=== PATIENT | male | born 1965 | race Caucasian/White ===

== ENCOUNTER 2019-12-05 19:20 | Inpatient (IN) | payer BC ==
[2019-12-05] MEDS ORDERED: KETOROLAC 30 MG/ML 1 ML VIAL IVP STA (19:30)
--- NOTE | 2019-12-05 19:32 | ED ---
Recheck HPI <Marva Freeman - Last Filed: 12/05/19 23:28> <LeandroFarrah Vidhi - Last Filed: 12/07/19 07:23> - General Chief Complaint: Abdominal Pain Stated Complaint: Kidney Stone Time Seen by Provider: 12/05/19 19:23 - History of Present Illness Initial Comments: 54yo male who denies significant PMH presents today for chief complaint of left- sided flank pain. Patient states that a week ago Wednesday he was diagnosed with a left-sided obstructing kidney stone that would need a possible stent placement, patient states that he was discharged from the [facility] with urology follow-up. Patient states she has scheduled urology follow-up in 2 days however can no longer tolerate the pain he states he presented yesterday to the [facility] for pain control secondary to the stone. Patient denies any fever or chills general malaise patient admits to intolerable pain. Patient states he is still able to urinate. Denies additional areas of pain or complaints. Patient states he does not wish to follow-up in [place] he wishes to be seen wherever he will be seen and treated the fastest. (Marva Freeman) - Related Data Home Medications Medication Instructions Recorded Confirmed Albuterol Sulfate [Ventolin HFA] 1 - 2 puff INHALATION RT-Q6H PRN 12/05/19 12/05/19 Fluticasone Propion/Salmeterol 1 puff INHALATION RT-DAILY 12/05/19 12/05/19 [Wixela 250-50 Inhub] Ondansetron Odt [Zofran Odt] 4 mg PO Q8H PRN 12/05/19 12/05/19 amLODIPine BESYLATE/BENAZEPRIL 1 cap PO DAILY 12/05/19 12/05/19 [amLODIPine BESYLATE/BENAZEPRIL 5-10 MG] oxyCODONE-APAP 5-325MG [Percocet 1 tab PO Q6HR PRN 12/05/19 12/05/19 5-325 mg] Allergies Allergy/AdvReac Type Severity Reaction Status Date / Time Sulfa (Sulfonamide AdvReac Rash/Hives Verified 12/05/19 21:48 Antibiotics) Review of Systems ROS Other: All systems not noted in ROS Statement are negative. <Marva Freeman - Last Filed: 12/05/19 23:28> ROS Other: All systems not noted in ROS Statement are negative. <Urbano Reevesah Vidhi - Last Filed: 12/07/19 07:23> ROS Statement: Those systems with pertinent positive or pertinent negative responses have been documented in the HPI. General Exam <Marva Freeman - Last Filed: 12/05/19 23:28> - General Exam Comments Initial Comments: General: The patient is awake and alert, in no distress Eye: +3 mm pupils are equal, round and reactive to light, extra-ocular mov ements are intact. No nystagmus. There is normal conjunctiva bilaterally. No signs of icterus. Cardiovascular: There is a regular rate and rhythm. No murmur, rub or gallop is appreciated. Respiratory: Lungs are clear to auscultation, respirations are non-labored, breath sounds are equal. No wheezes, stridor, rales, or rhonchi. Gastrointestinal: Soft, non-distended, non-tender abdomen without masses or organomegaly noted. There is no rebound or guarding present. Musculoskeletal: Normal ROM, no tenderness. Strength 5/5. Sensation intact. Radial pulses equal bilaterally 2+. Neurological: A&O x 3. CN II-XII intact grossly, There are no obvious motor or sensory deficits. Coordination appears grossly intact. Speech is normal. Skin: Skin is warm and dry and no rashes or lesions are noted. Psychiatric: Cooperative, appropriate mood & affect, normal judgment. (Marva Freeman) Course Vital Signs 12/05/19 12/05/19 19:32 20:28 Temperature 98.6 F Pulse Rate 74 71 Respiratory 19 17 Rate Blood Pressure 155/110 137/87 O2 Sat by Pulse 97 95 Oximetry Medical Decision Making - Lab Data Result diagrams: 12/05/19 20:00 12/05/19 20:00 <Marva Freeman Avery - Last Filed: 12/05/19 23:28> - Lab Data Result diagrams: 12/05/19 20:00 12/05/19 20:00 <SurinderveronicaFarrah Vidhi - Last Filed: 12/07/19 07:23> - Medical Decision Making 54yo male presenting today for cc of left flank pain, ongoing x 1 week. Patient states pain has been uncontrolled with percocet outpatient. Patient states that he wishes to see urology in [place] who whoever can see the patient fastest. Patient does not have fever. Mild leukocytosis. Patient has no bacteria in urine. Patient chart reviewed from visit yesterday in ER. I saw CT report revealing 7mm UPJ stone with perinephretic edema some hydronephrosis concerning for obstructing stone. UA no consistent with infection and patient leukocytosis has not worsened from [facility] to our facility. Dr. Monzon accepted admission for pain control and possible intervention. Gabrielle Reeves spoke with Dr. Monzon and is agreeable to admission Green field filter noted on KUB is from when patient was on ECHMO after a fungal pneumonia (Marva Freeman) I was available for consultation in the emergency department. The history and physical exam were done by the midlevel provider. I was consulted for this patients care. I reviewed the case with the midlevel provider and based on the ir presentation of the patient, I agree with the assessment, medical decision making and plan of care as documented. I discussed the case with Dr. Monzon who accepted admission for the patient. Chart was dictated using [employer] dictation software. Attempts were made to correct any dictation errors however some typographical errors may persist. (Farrah Reeves) - Lab Data Lab Results 12/05/19 12/05/19 12/05/19 Range/Units 20:00 20:00 20:00 WBC 12.1 H (3.8-10.6) k/uL RBC 4.92 (4.30-5.90) m/uL Hgb 14.8 (13.0-17.5) gm/dL Hct 45.0 (39.0-53.0) % MCV 91.4 (80.0-100.0) fL MCH 30.0 (25.0-35.0) pg MCHC 32.9 (31.0-37.0) g/dL RDW 12.1 (11.5-15.5) % Plt Count 244 (150-450) k/uL Neutrophils % 84 % Lymphocytes % 8 % Monocytes % 6 % Eosinophils % 2 % Basophils % 1 % Neutrophils # 10.1 H (1.3-7.7) k/uL Lymphocytes # 0.9 L (1.0-4.8) k/uL Monocytes # 0.7 (0-1.0) k/uL Eosinophils # 0.2 (0-0.7) k/uL Basophils # 0.1 (0-0.2) k/uL Sodium 137 (137-145) mmol/L Potassium 4.1 (3.5-5.1) mmol/L Chloride 106 (98-107) mmol/L Carbon Dioxide 23 (22-30) mmol/L Anion Gap 8 mmol/L BUN 15 (9-20) mg/dL Creatinine 1.25 (0.66-1.25) mg/dL Est GFR (CKD-EPI)AfAm 77 (>60 ml/min/1.73 sqM) Est GFR (CKD-EPI)NonAf 66 (>60 ml/min/1.73 sqM) Glucose 103 H (74-99) mg/dL Plasma Lactic Acid Suhail 1.2 (0.7-2.0) mmol/L Calcium 8.4 (8.4-10.2) mg/dL Total Bilirubin 0.6 (0.2-1.3) mg/dL AST 21 (17-59) U/L ALT 17 (4-49) U/L Alkaline Phosphatase 60 (38-126) U/L Total Protein 7.2 (6.3-8.2) g/dL Albumin 3.9 (3.5-5.0) g/dL Urine Color Urine Appearance (Clear) Urine pH (5.0-8.0) Ur Specific [place] (1.001-1.035) Urine Protein (Negative) Urine Glucose (UA) (Negative) Urine Ketones (Negative) Urine Blood (Negative) Urine Nitrite (Negative) Urine Bilirubin (Negative) Urine Urobilinogen (<2.0) mg/dL Ur Leukocyte Esterase (Negative) 12/05/19 Range/Units 20:00 WBC (3.8-10.6) k/uL RBC (4.30-5.90) m/uL Hgb (13.0-17.5) gm/dL Hct (39.0-53.0) % MCV (80.0-100.0) fL MCH (25.0-35.0) pg MCHC (31.0-37.0) g/dL RDW (11.5-15.5) % Plt Count (150-450) k/uL Neutrophils % % Lymphocytes % % Monocytes % % Eosinophils % % Basophils % % Neutrophils # (1.3-7.7) k/uL Lymphocytes # (1.0-4.8) k/uL Monocytes # (0-1.0) k/uL Eosinophils # (0-0.7) k/uL Basophils # (0-0.2) k/uL Sodium (137-145) mmol/L Potassium (3.5-5.1) mmol/L Chloride (98-107) mmol/L Carbon Dioxide (22-30) mmol/L Anion Gap mmol/L BUN (9-20) mg/dL Creatinine (0.66-1.25) mg/dL Est GFR (CKD-EPI)AfAm (>60 ml/min/1.73 sqM) Est GFR (CKD-EPI)NonAf (>60 ml/min/1.73 sqM) Glucose (74-99) mg/dL Plasma Lactic Acid Suhail (0.7-2.0) mmol/L Calcium (8.4-10.2) mg/dL Total Bilirubin (0.2-1.3) mg/dL AST (17-59) U/L ALT (4-49) U/L Alkaline Phosphatase (38-126) U/L Total Protein (6.3-8.2) g/dL Albumin (3.5-5.0) g/dL Urine Color Yellow Urine Appearance Clear (Clear) Urine pH 6.5 (5.0-8.0) Ur Specific [place] 1.016 (1.001-1.035) Urine Protein Negative (Negative) Urine Glucose (UA) Negative (Negative) Urine Ketones 2+ H (Negative) Urine Blood Negative (Negative) Urine Nitrite Negative (Negative) Urine Bilirubin Negative (Negative) Urine Urobilinogen <2.0 (<2.0) mg/dL Ur Leukocyte Esterase Negative (Negative) Disposition Is patient prescribed a controlled substance at d/c from ED?: No Time of Disposition: 22:03 Decision to Admit Reason: Admit from EC Decision Date: 12/05/19 Decision Time: 22:03 <Marva Freeman - Last Filed: 12/05/19 23:28> <Farrah Reeves - Last Filed: 12/07/19 07:23> Clinical Impression: Intractable pain, Urinary tract obstruction by kidney stone Disposition: ADMITTED IP TO THIS [facility] Condition: Stable
[2019-12-05 20:09] LABS: RBC 4.92 m/uL (4.30-5.90); WBC 12.1 k/uL (3.8-10.6)
[2019-12-05 20:10] LABS: Basophils # (A) 0.1 k/uL (0-0.2); Basophils % (A) 1 %; Eosinophils # (A) 0.2 k/uL (0-0.7); Eosinophils % (A) 2 %; HGB 14.8 gm/dL (13.0-17.5); Lymphocytes # (A) 0.9 k/uL (1.0-4.8); Lymphocytes % (A) 8 %; MCHC 32.9 g/dL (31.0-37.0); MCV 91.4 fL (80.0-100.0); Mean Platelet Volume 7.6; Monocytes # (A) 0.7 k/uL (0-1.0); Monocytes % (A) 6 %; Neutrophils # (A) 10.1 k/uL (1.3-7.7); Neutrophils % (A) 84 %; Platelet Count 244 k/uL (150-450); RDW 12.1 % (11.5-15.5)
[2019-12-05 20:21] LABS: Albumin 3.9 g/dL (3.5-5.0); Calcium 8.4 mg/dL (8.4-10.2); Potassium 4.1 mmol/L (3.5-5.1); Total Bilirubin 0.6 mg/dL (0.2-1.3); Total Protein 7.2 g/dL (6.3-8.2)
[2019-12-05 20:26] LABS: Appearance,Urine Clear (Clear); Bilirubin,Urine Negative (Negative); Blood,Urine Negative (Negative); Color,Urine Yellow; Glucose,Urine (UA) Negative (Negative); Ketones,Urine 2+ (Negative); Leukocyte Esterase,Urine Negative (Negative); Nitrite,Urine Negative (Negative); PH, Urine 6.5 (5.0-8.0); Protein,Urine Negative (Negative); Specific Gravity,Urine 1.016 (1.001-1.035); Urobilinogen,Urine <2.0 mg/dL (<2.0)
--- NOTE | 2019-12-05 21:32 | XR ---
EXAMINATION TYPE: XR KUB DATE OF EXAM: 12/05/2019 COMPARISON: None INDICATION: Left renal pain TECHNIQUE: Single view abdomen frontal upright view FINDINGS: There is a nonspecific bowel gas pattern present. Filter is within the right paraspinal region betwee n L2 and L3. No suspicious calcifications are evident. Couple of nonspecific calcifications are betwe en the L4 and L5 transverse processes. Psoas margins are normal. No organomegaly is present. IMPRESSION: 1. Nonspecific abdomen. 2. Nonspecific calcification in the right hemipelvis. 3. No suspicious left renal or ureteral stone calcifications.
[2019-12-05] MEDS ORDERED: MORPHINE SULFATE 4 MG/ML SYRINGE IV PRN (21:59)
[2019-12-05] MEDS ORDERED: KETOROLAC 30 MG/ML 1 ML VIAL IVP PRN (21:59)
[2019-12-05] MEDS ORDERED: NALOXONE 0.4 MG/ML 1 ML VIAL IV PRN (21:59)
[2019-12-05] MEDS ORDERED: ONDANSETRON 4 MG/2 ML VIAL IVP PRN (22:20)
[2019-12-06] MEDS: SODIUM CHLORIDE 0.9% 1,000 ML IV SCH ×3 (00:31→18:12)
--- NOTE | 2019-12-06 08:46 | P.GSHP ---
History of Present Illness H&P Date: 12/06/19 Chief Complaint: Left renal colic The patient is a 54 yo WM seen in the ER at [facility] on November 29, 2019 for left renal colic. A CT scan showed moderate left hydronephrosis due to a 7 mm left UPJ calculus. He was seen by Dr. Huey Avilez, who scheduled him to undergo placement of a left ureteral stent on 12/07/2019 with the intent of him subsequently undergoing ESWL. However, he was admitted to [facility] yesterday with intractable pain. - Constitutional Constitutional: Denies chills, Denies fever - Gastrointestinal Gastrointestinal: Reports nausea, Denies vomiting - Genitourinary (Male) Genitourinary: Reports flank pain, Reports kidney stones, Reports urinary hesitancy, Denies dysuria, Denies hematuria Past Medical History Past Medical History: Asthma, Pneumonia History of Any Multi-Drug Resistant Organisms: None Reported Past Surgical History: Appendectomy, Cholecystectomy Additional Past Surgical History / Comment(s): papito filter Past Psychological History: No Psychological Hx Reported Smoking Status: Never smoker Past Alcohol Use History: Occasional Past Drug Use History: None Reported - Past Family History Mother Family Medical History: No Reported History Medications and Allergies Home Medications Medication Instructions Recorded Confirmed Type Albuterol Sulfate [Ventolin HFA] 1 - 2 puff INHALATION RT-Q6H PRN 12/05/19 12/05/19 History Fluticasone Propion/Salmeterol 1 puff INHALATION RT-DAILY 12/05/19 12/05/19 History [Wixela 250-50 Inhub] Ondansetron Odt [Zofran Odt] 4 mg PO Q8H PRN 12/05/19 12/05/19 History amLODIPine BESYLATE/BENAZEPRIL 1 cap PO DAILY 12/05/19 12/05/19 History [amLODIPine BESYLATE/BENAZEPRIL 5-10 MG] oxyCODONE-APAP 5-325MG [Percocet 1 tab PO Q6HR PRN 12/05/19 12/05/19 History 5-325 mg] Allergies Allergy/AdvReac Type Severity Reaction Status Date / Time Sulfa (Sulfonamide AdvReac Rash/Hives Verified 12/05/19 21:48 Antibiotics) Surgical - Exam Vital Signs Temp Pulse Resp BP Pulse Ox 98.6 F 74 19 155/110 97 12/05/19 19:32 12/05/19 19:32 12/05/19 19:32 12/05/19 19:32 12/05/19 19:32 - General well developed, well nourished, no distress - Respiratory normal respiratory effort - Abdomen Abdomen: soft, non tender, no guarding, no rigid, no rebound - Genitourinary normal penis with no external lesions, testicles non-tender - Rectum Rectum: normal sphincter tone, no masses, other (prostate moderately enlarged but smooth) - Psychiatric oriented to time, oriented to person, oriented to place, speech is normal, memory intact Results - Labs 12/05/19 20:00 12/05/19 20:00 Abnormal Lab Results - Last 24 Hours (Table) 12/05/19 12/05/19 12/05/19 Range/Units 20:00 20:00 20:00 WBC 12.1 H (3.8-10.6) k/uL Neutrophils # 10.1 H (1.3-7.7) k/uL Lymphocytes # 0.9 L (1.0-4.8) k/uL Glucose 103 H (74-99) mg/dL Urine Ketones 2+ H (Negative) Diabetes panel 12/05/19 Range/Units 20:00 Sodium 137 (137-145) mmol/L Potassium 4.1 (3.5-5.1) mmol/L Chloride 106 (98-107) mmol/L Carbon Dioxide 23 (22-30) mmol/L BUN 15 (9-20) mg/dL Creatinine 1.25 (0.66-1.25) mg/dL Glucose 103 H (74-99) mg/dL Calcium 8.4 (8.4-10.2) mg/dL AST 21 (17-59) U/L ALT 17 (4-49) U/L Alkaline Phosphatase 60 (38-126) U/L Total Protein 7.2 (6.3-8.2) g/dL Albumin 3.9 (3.5-5.0) g/dL Calcium panel 12/05/19 Range/Units 20:00 Calcium 8.4 (8.4-10.2) mg/dL Albumin 3.9 (3.5-5.0) g/dL Pituitary panel 12/05/19 Range/Units 20:00 Sodium 137 (137-145) mmol/L Potassium 4.1 (3.5-5.1) mmol/L Chloride 106 (98-107) mmol/L Carbon Dioxide 23 (22-30) mmol/L BUN 15 (9-20) mg/dL Creatinine 1.25 (0.66-1.25) mg/dL Glucose 103 H (74-99) mg/dL Calcium 8.4 (8.4-10.2) mg/dL Adrenal panel 12/05/19 Range/Units 20:00 Sodium 137 (137-145) mmol/L Potassium 4.1 (3.5-5.1) mmol/L Chloride 106 (98-107) mmol/L Carbon Dioxide 23 (22-30) mmol/L BUN 15 (9-20) mg/dL Creatinine 1.25 (0.66-1.25) mg/dL Glucose 103 H (74-99) mg/dL Calcium 8.4 (8.4-10.2) mg/dL Total Bilirubin 0.6 (0.2-1.3) mg/dL AST 21 (17-59) U/L ALT 17 (4-49) U/L Alkaline Phosphatase 60 (38-126) U/L Total Protein 7.2 (6.3-8.2) g/dL Albumin 3.9 (3.5-5.0) g/dL - Imaging CT scan - abdomen: report reviewed, image reviewed Assessment and Plan (1) Calculus of ureter Current Visit: Yes Status: Acute Code(s): N20.1 - CALCULUS OF URETER SNOM ED Code(s): 42506668 (2) Hydronephrosis with renal and ureteral calculous obstruction Current Visit: Yes Status: Acute Code(s): N13.2 - HYDRONEPHROSIS WITH RENAL AND URETERAL CALCULOUS OBSTRUCTION SNOMED Code(s): 554111234 Plan: I had a lengthy discussion with the patient and his . I have offered to place a left ureteral stent during this hospitalization. However, the calculus is not visualized on a plain radiograph, and I have suggested he may be better served by undergoing ureteroscopy with laser lithotripsy and stent placement. The rationale for this was discussed in detail. The procedure was reviewed, and potential risks were discussed which include anesthesia, bleeding, infection, and ureteral injury. The possibility that the calculus cannot be adequately fragmented was discussed. The patient wishes to proceed in this manner. Time with Patient: Greater than 30
[2019-12-06] MEDS ORDERED: ONDANSETRON 4 MG/2 ML VIAL IVP ONE (18:43)
[2019-12-06] MEDS ORDERED: LIDOCAINE 1% (10MG/ML) FOR IV START INTRADERMA PRN (18:43)
[2019-12-06] MEDS ORDERED: HYDROmorphone 0.5 MG/0.5 ML SYRINGE IVP PRN (18:43)
[2019-12-06] MEDS ORDERED: LACTATED RINGERS 1,000 ML IV SCH (18:43)
[2019-12-06] MEDS ORDERED: DEXAMETHASONE SOD PHOSPHATE 10 MG/ML 1 ML VIAL IV ONE (18:43)
[2019-12-07] MEDS: SODIUM CHLORIDE 0.9% 1,000 ML IV SCH (05:20)
[2019-12-07] MEDS ORDERED: LACTATED RINGERS 1,000 ML IV ONE (13:04)
[2019-12-07] MEDS ORDERED: fentaNYL (PF) 50 MCG/ML 2 ML AMP ONE (14:30)
[2019-12-07] MEDS ORDERED: GLYCOPYRROLATE 0.2 MG/ML 2 ML VIAL ONE (14:30)
[2019-12-07] MEDS ORDERED: ROCURONIUM BROMIDE 10 MG/ML 5 ML VIAL IV ONE (14:30)
[2019-12-07] MEDS ORDERED: NEOSTIGMINE 1 MG/ML 10 ML VIAL ONE (14:30)
[2019-12-07] MEDS ORDERED: MIDAZOLAM 2 MG/2 ML VIAL ONE (14:30)
[2019-12-07] MEDS ORDERED: LIDOCAINE 1% INJ 10MG/ML (20 ML MDV) ONE (14:30)
[2019-12-07] MEDS ORDERED: PROPOFOL 10 MG/ML 20 ML VIAL IV ONE (14:30)
[2019-12-07] MEDS ORDERED: SUCCINYLCHOLINE CHLORIDE 100 MG/5 ML SYR IV ONE (14:30)
[2019-12-07] MEDS ORDERED: KETOROLAC 30 MG/ML 1 ML VIAL ONE (14:30)
[2019-12-07] MEDS ORDERED: PHENYLEPHRINE-0.9% NACL SYG 1 MG/10 ML SYRINGE ONE (14:30)
[2019-12-07] MEDS ORDERED: IOPAMIDOL-370 50ML BTL MISCELLANE ONE ×2 (14:54)
[2019-12-07] MEDS ORDERED: oxyCODONE-APAP 5-325MG 1 EACH TAB PO PRN (16:02)
[2019-12-07] MEDS ORDERED: ONDANSETRON ODT 4 MG TAB PO PRN (16:02)
--- NOTE | 2019-12-07 16:02 | P.OP ---
Date of Procedure: 12/07/19 Preoperative Diagnosis: Left ureteral calculus Postoperative Diagnosis: Same Procedure(s) Performed: Cystoscopy, left ureteroscopy with Holmium laser lithotripsy, left ureteral stent insertion Anesthesia: PASCUALA Surgeon: Cameron Monzon Estimated Blood Loss (ml): 10 IV fluids (ml): 650 Pathology: none sent Condition: stable Disposition: PACU Indications for Procedure: The patient is a 54 yo WM seen in the ER at [facility] on November 29, 2019 for left renal colic. A CT scan showed moderate left hydronephrosis due to a 7 mm left UPJ calculus. He was seen by Dr. Huey Avilez, who scheduled him to undergo placement of a left ureteral stent on 12/07/2019 with the intent of him subsequently undergoing ESWL. However, he was admitted to [facility] with intractable pain and now comes for ureteroscopic removal of the calculus. Operative Findings: Left proximal ureteral calculus, fragmented completely. Description of Procedure: The patient was taken to the operating room and placed in the dorsolithotomy position, with legs supported in Derian stirrups. The external genitalia was prepped and draped sterilely. The 30 lens was used to introduce the 19-Nepali Stortz cystoscopic sheath through the urethra and into the bladder under direct vision. The prostatic urethra showed evidence of a high median bar but without is otherwise unremarkable. There was no significant lateral lobe enlargement The bladder was examined in its entirety. Both ureteral orifices were normal anatomic location and configuration, and clear urine effluxed from both. No tumors or foreign bodies were seen. Using an 8-Nepali cone-tipped catheter, a left retrograde pyelogram was performed. The ureter appeared normal distal to the stone, which was seen within the proximal ureter. A 0.038 inch Glidewire was passed through the cystoscope. The left ureteral orifice was cannulated, and the Glidewire was advanced up to the left renal pelvis. The calculus had become dislodged as a result of the retrograde pyelogram and refluxed back into the kidney. An 11/13- Nepali ureteral access catheter was passed over the wire, up to the proximal ureter. The Olympus mini flexible ureteroscope was passed through the ureteral access catheter sheath and advanced to the proximal ureter under direct vision, up to the left renal pelvis. The calculus was identified. The 200 micron Holmium laser probe was passed through the ureteroscope, and lithotripsy was performed. The calculus refluxed into an upper pole calyx, where lithotripsy was completed. The calculus was very dense, likely composed of calcium oxalate monohydrate, and therefore a fragmenting mode was utilized rather than a dusting mode. There were no residual calculus fragments exceeding the size of the laser fiber tip. The Glidewire was passed through the ureteroscope, which was then removed along with the ureteral access catheter sheath. The Glidewire was backloaded into the cystoscope, which was passed into the bladder. A 4.8- Nepali, 26 cm double-J ureteral stent was placed over the wire. Proper stent positioning was verified fluoroscopically and endoscopically. The bladder was emptied and the cystoscope removed. The patient tolerated the procedure well and was taken to the recovery room in stable condition. [facility] [place] Report: Procedure Acuity: Urgent Stone Size and Location: 7 mm, left proximal ureter Ureteral Dilation: No Ureteral Access Sheath Used: Yes Stone Sent for Analysis: No All Stones/Fragments Were Removed with a Basket: No Complications: No Preoperative Antibiotics Given: Yes Stent Placed: Yes If Stent Placed, Was String Left Attached: Yes If Stent Placed, When is it to be Removed: 1 week Discharge Medications: None
--- NOTE | 2019-12-07 16:40 | FL ---
EXAMINATION TYPE: FL urography retrograde DATE OF EXAM: 12/07/2019 FLUOROSCOPY Fluoroscopy time of 36 seconds was used during cystoscopy with left-sided lithotripsy and stent inser tion. 2 image/s document/s the procedure.
[2019-12-07 17:04] VITALS: RESP 16
[2019-12-07 17:35] VITALS: TEMP 97.7
[2019-12-07 17:58] VITALS: BP 133/86; PULSE 74
--- NOTE | 2019-12-08 05:56 | P.DS ---
Providers Date of admission: 12/07/19 08:41 Expected date of discharge: 12/07/19 Attending physician: Cameron Monzon Primary care physician: Dar Mauricio - Discharge Diagnosis(es) (1) Calculus of ureter Status: Acute (2) Hydronephrosis with renal and ureteral calculous obstruction Status: Acute Hospital Course: The patient was admitted with left renal colic due to a 7 mm left UPJ calculus. He was treated with parenteral analgesics and IV hydration. On 12/07/2019 he underwent ureteroscopy with laser lithotripsy. The calculus was fragmented completely, and a ureteral stent was placed. He was subsequently discharged home. Procedures: Cystoscopy, left ureteroscopy with laser lithotripsy, left ureteral stent insertion on 12/07/2019 Patient Condition at Discharge: Stable Plan - Discharge Summary New Discharge Prescriptions: No Action oxyCODONE-APAP 5-325MG [Percocet 5-325 mg] 1 tab PO Q6HR PRN PRN Reason: Pain Ondansetron Odt [Zofran Odt] 4 mg PO Q8H PRN PRN Reason: Nausea Fluticasone Propion/Salmeterol [Wixela 250-50 Inhub] 1 puff INHALATION RT- DAILY Albuterol Sulfate [Ventolin HFA] 1 - 2 puff INHALATION RT-Q6H PRN PRN Reason: Shortness Of Breath amLODIPine BESYLATE/BENAZEPRIL [amLODIPine BESYLATE/BENAZEPRIL 5-10 MG] 1 cap PO DAILY Discharge Medication List Albuterol Sulfate [Ventolin HFA] 1 - 2 puff INHALATION RT-Q6H PRN 12/05/19 [History] Fluticasone Propion/Salmeterol [Wixela 250-50 Inhub] 1 puff INHALATION RT-DAILY 12/05/19 [History] Ondansetron Odt [Zofran Odt] 4 mg PO Q8H PRN 12/05/19 [History] amLODIPine BESYLATE/BENAZEPRIL [amLODIPine BESYLATE/BENAZEPRIL 5-10 MG] 1 cap PO DAILY 12/05/19 [History] oxyCODONE-APAP 5-325MG [Percocet 5-325 mg] 1 tab PO Q6HR PRN 12/05/19 [History] Follow up Appointment(s)/Referral(s): Cameron Monzon MD [STAFF PHYSICIAN] - 1 Week (Office is closed please call and make follow up appointment.) Dar Mauricio MD [Primary Care Provider] - 1-2 days (Office is closed please call and make follow up appointment.) Patient Instructions/Handouts: *Surgery [facility] - Cystoscopy Discharge Instructions, Ureteral Stent Placement (DC), Lithotripsy (DC) Activity/Diet/Wound Care/Special Instructions: Drink plenty of fluids for 72 hours. Strain urine for 72 hours. Diet as tolerated. Activity as tolerated. Discharge Disposition: HOME SELF-CARE
[2019-12-08] MEDS ORDERED: SYMBICORT 80-4.5 MCG INHALER INHALATION SCH (08:00)
[2019-12-08] MEDS ORDERED: amLODIPine 5 MG TAB PO SCH (09:00)
[2019-12-08] MEDS ORDERED: LISINOPRIL 10 MG TAB PO SCH (09:00)
== END 2019-12-07 18:23 | disposition home or self-care (01) | DRG 661 ==
LOC: EC 19:20 → 5NMEDONC 23:02 → OBSVTOIN 12-07 08:41
PROVIDERS: ADMIT Urology; ATTEND Urology
PROC: 0TC18ZZ Extirpation of Matter from Left Kidney, Via Natural or Artificial Opening Endoscopic (ICD-10-PCS; principal; 2019-12-07 14:00)
PROC: 0T778DZ Dilation of Left Ureter with Intraluminal Device, Via Natural or Artificial Opening Endoscopic (ICD-10-PCS; principal; 2019-12-07 14:00)
DX: N13.2 Hydronephrosis with renal and ureteral calculous obstruction (principal); D72.829 Elevated white blood cell count, unspecified; J45.909 Unspecified asthma, uncomplicated; Z11.59 Encounter for screening for other viral diseases; Z79.899 Other long term (current) drug therapy; Z88.2 Allergy status to sulfonamides; Z87.01 Personal history of pneumonia (recurrent); Z90.49 Acquired absence of other specified parts of digestive tract
CPT/HCPCS: 36415; 74018; 74420; 80053; 81003; 83605; 85025; 87040; 96374; 96375; 99285

== ENCOUNTER → 2020-01-10 | Outpatient (CLI) | payer BC ==
[2020-01-10 08:27] LABS: Appearance,Urine Clear (Clear); Bilirubin,Urine Negative (Negative); Blood,Urine Negative (Negative); Color,Urine Colorless; Glucose,Urine (UA) Negative (Negative); Ketones,Urine Negative (Negative); Leukocyte Esterase,Urine Negative (Negative); Nitrite,Urine Negative (Negative); Protein,Urine Negative (Negative); Specific Gravity,Urine 1.003 (1.001-1.035); Urobilinogen,Urine <2.0 mg/dL (<2.0)
--- NOTE | 2020-01-10 09:14 | US ---
EXAMINATION TYPE: US kidneys/renal and bladder DATE OF EXAM: 01/10/2020 COMPARISON: Abdominal x-ray December 05, 2019 CLINICAL HISTORY: N13.2 Hydronephrosis. History of left renal stones and recent lithotripsy. EXAM MEASUREMENTS: Right Kidney: 11.5 x 5.8 x 4.5 cm Left Kidney: 10.9 x 6.0 x 6.1 cm Post Void Residual Volume: 19.2 mL Right Kidney: No hydronephrosis or masses seen small cortical cysts are imaged with larger cyst seen medial mid pole = 0.9 x 1.0 x 0.9cm Bladder: wnl Bilateral Jets seen: not seen after 3 minute observation Normal Post Void Residual: yes Incidental findings noted in gallbladder: multiple shadowing gallstones seen. No nephrolithiasis is seen. The urinary bladder is satisfactorily distended. Tiny amount of residual urine. Bilateral ureter jets not seen. Incidental multiple mobile shadowing gallstones and gallbladd er with scanning right kidney. Left kidney shows mild to moderate bilateral caliectasis. Technologist also rivera a subcentimeter simple appearing thin-walled cysts. No definitive shadowing stones. IMPRESSION: Persistent [id number] left-sided hydronephrosis is present.
== END | disposition home or self-care (01) ==
LOC: RADUSWWP 07:02
PROVIDERS: ATTEND Urology
DX: N13.2 Hydronephrosis with renal and ureteral calculous obstruction (principal)
CPT/HCPCS: 76770; 81003

== ENCOUNTER → 2020-02-08 | Outpatient (CLI) | payer BC ==
--- NOTE | 2020-02-09 07:28 | US ---
EXAMINATION TYPE: US kidneys/renal and bladder DATE OF EXAM: 02/08/2020 COMPARISON: US 01/10/2020 CLINICAL HISTORY: N13.2 Hydronephrosis. Hx of stones EXAM MEASUREMENTS: Right Kidney: 11.6 x 5.6 x 5.1 cm Left Kidney: 11.2 x 5.6 x 5.3 cm Right Kidney: No hydronephrosis or masses seen Left Kidney: No hydronephrosis. Tiny hypoechoic area visualized measuring 0.7 cm Bladder: wnl as visualized, not fully distended IMPRESSION: No evidence of hydronephrosis or nephrolithiasis. Small hypoechoic lesion measuring 7 mm in the left kidney too small to characterize but likely related to a cyst
== END | disposition home or self-care (01) ==
LOC: RADUSWWP 16:14
PROVIDERS: ATTEND Urology
DX: N28.9 Disorder of kidney and ureter, unspecified (principal)
CPT/HCPCS: 76770